=== PATIENT | female | born 1970 | race Caucasian/White ===

== ENCOUNTER 2024-08-12 09:26 | Emergency (ER) | payer OTHER, SELFPAY ==
[2024-08-12 09:35] VITALS: BP 149/82
[2024-08-12 11:01] VITALS: BMI 26.2
--- NOTE | 2024-08-12 11:25 | ED.GENMED ---
History of Present Illness
General
Chief Complaint: Chest Pain
Source: patient
Exam Limitations: none
Time Seen by Provider: 08/12/24 11:05
History of Present Illness
History of Present Illness:
54yoF with a history of psoriasis presenting with her for evaluation of chest pain. Patient reports central to left-sided chest discomfort that has been constant for the past 4 days. The pain is described as a fluttering sensation and is
non-radiating. Pain is worse with deep breathing and position changes. She denies any exertional pain. She initially thought she might have pulled a muscle because she was shoveling snow the day before her symptoms began. She has been taking
acetaminophen without much relief. She reports some tingling in her left hand. She is otherwise asymptomatic and denies any dizziness, syncope, nausea, vomiting, leg swelling, calf pain. She denies any history of coronary artery disease and has
never seen a squeegeer and former before.
Phy Exam
General Physical Exam
General Presentation: well appearing and no apparent distress
General age: appears stated age
General Skin: warm and dry
General Habitus: normal
General Mental: alert
ENT Exam
ENT Exam: normocephalic
Cardiovascular Exam
Cardiovascular Exam: regular rate/rhythm, no edema, no murmur and normal peripheral pulses (2+ DP pulses bilaterally)
Pulmonary Exam
Pulmonary Exam: lungs clear, no respiratory distress, no rales, no crackles, no rhonchi and other (+Point tenderness noted to the L anterior chest wall. No skin changes.)
Neurological Exam
Neurological Exam: alert
Jules Coma Scale
Eye Opening: Spontaneous
Verbal Response: Oriented
Motor Response: Obeys Commands
GCS Total Score: 15
Skin Exam
Skin Exam: normal color and warm/dry
Psychiatric Exam
Psychiatric Exam: normal mood/affect
Scores
Heart Score for Chest Pain Patients
STEMI patient?: No
History: Slightly or Non-Suspicious
ECG: Normal
Age: >45 - <65 years
Risk Factors: No Risk Factors
Troponin: </= Normal Limit
Heart Score for Chest Pain Patients: 1
Heart Score Risk: 2.5% MACE over next 6 weeks
Course
Orders/Labs/Results
Orders:
Orders
08/12/24 09:26
Electrocardiogram (*1) Urgent
Reason for Study: Chest Pain
EKG- Treatment ONCE
08/12/24 11:00
Cardiac Monitoring- Treatment ONCE
IV Insert/Care/Rem.- Treatment PRN
O2 Therapy [RESP] Urgent
Titrate/Wean O2 to maintain O2 sat greater than (%): 90
Special Instructions: Maintain sats >/=90%
Pulse Ox/spot Check [RESP] Urgent
Quantity: 1
Special Instructions: ON ROOM AIR
08/12/24 11:02
Complete Blood Count/With Diff Urgent
Troponin I Urgent
08/12/24 11:04
Chest [CR Chest - 2 Views ] Urgent
Comment:
Reason For Exam: pain/SOB
08/12/24 11:05
D-Dimer Urgent
08/12/24 11:28
Comprehensive Metabolic Panel Routine
08/12/24 12:15
Ketorolac [Toradol] 15 mg IV NOW STA
Abnormal Lab Results
08/12/24 08/12/24
11:02 11:28
MCH 31.9 H pg
(27.0-31.0)
Absolute Monos (auto) 0.8 H 10^3/uL
(0.1-0.6)
Monocytes % 10.3 H %
(1.7-9.3)
BUN 19 H mg/dl
(7-17)
08/12/24 11:02
08/12/24 11:28
Vital Signs
Initial and Last Documented VS:
Initial Vital Signs
Temp Pulse Resp BP Pulse Ox
98.5 F 63 18 149/82 100
08/12/24 09:35 08/12/24 09:35 08/12/24 09:35 08/12/24 09:35 08/12/24 09:35
Last Documented Vital Signs
Temp Pulse Resp BP Pulse Ox
98.5 F 61 17 149/82 100
08/12/24 09:35 08/12/24 11:03 08/12/24 11:08 08/12/24 09:35 08/12/24 09:35
MDM/Problems Addressed
Differential Diagnosis Includes:
54yoF here with chest pain x 4 days. Worse with deep breathing and position changes. Shoveling snow day before pain started. She is mildly hypertensive with otherwise normal vital signs. There is point tenderness to the L anterior chest wall on
exam. Differential diagnosis includes but is not limited to: musculoskeletal, pleurisy, pneumonia, pleural effusion, pneumothorax, PE, ACS
Initial ED plan: Check cardiac labs, D-dimer, EKG, and CXR.
*EKG
Interpreted by ED Provider?: Yes
EKG Intrepretation Date: 08/12/24
Heart Rate: 61
Rate: normal
Rhythm: sinus
[place]: left axis deviation
Interval: normal interval
QRS Pattern: normal QRS
Ischemia: no ischemia
*Critical Care Note
Total Time (30-74mins, 75-104mins- exclusive of procedures): Not Applicable
Update Note
Update Note:
Labs overall unremarkable. D-dimer normal making PE very unlikely. EKG shows normal sinus rhythm without ischemic changes and troponin is within normal limits. Chest x-ray is clear. IV Toradol given with improvement in her pain. No indication
for hospitalization at this time. Suspect musculoskeletal pain. Supportive care discussed. Advised close PCP f/u and ED return precautions discussed. She expressed understanding and is in agreement with plan. She was discharged in stable condition.
ED Attending Note
-
Portions of this chart may have been created with voice recognition software.� Occasional wrong word or��sound alike� substitutions may have occurred due to the inherent limitations of voice recognition software.
Discharge Plan
Departure
Patient Disposition: Home (Routine Discharge)
Date of Disposition: 08/12/24
Time of Disposition: 13:06
Patient with high blood pressure during this ER visit?: Yes
Discharge Problem:
Chest pain
Instructions: Chest Pain PCP Follow Up
Referrals:
Jessica Cowan MD [Family Provider] -
Activity Restrictions/Additional Instructions:
Take ibuprofen 400mg-600mg every 6 hours as needed for pain. Apply heat to affected area.
Please follow-up with your family doctorin 3-4 days. Return to the ER immediately with any new or worsening symptoms.
Interventions
Interventions:
*Risk Screen - Suicide Last Done: 08/12/24 09:35
*General Assessment Last Done: 08/12/24 09:35
*Neglect/Abuse Screening Last Done: 08/12/24 09:35
ED- Fall Risk Assessment Last Done: 08/12/24 11:08
*Nursing Disposition Last Done: 08/12/24 13:25
ED- Cardiac Assessment Last Done: 08/12/24 11:08
Discharge Date and Time
Discharge Date/Time: 08/12/24 13:25
Print Language: WOLOF
[2024-08-12 11:31] LABS: % Basophils 0.6 % (0-2); % Eosinophils 1.4 % (0-6); % Immature Granulocytes 0.3 % (0-0.5); % Lymphocytes 29.8 % (20.5-51.1); % Monocytes 10.3 % (1.7-9.3); % Neutrophils 57.6 % (42.2-75.2); Absolute Basophils 0.1 10^3/uL (0-0.2); Absolute Eosinophils 0.1 10^3/uL (0-0.7); Absolute Lymphocytes 2.3 10^3/uL (1.2-3.4); Absolute Monocytes 0.8 10^3/uL (0.1-0.6); Absolute Neutrophils 4.5 10^3/uL (1.4-6.5); Hematocrit 43.2 % (37.0-47.0); Hemoglobin 14.5 g/dL (12.0-16.0); Mean Corp Hgb Conc. 33.6 g/dL (33.0-37.0); Mean Corpuscular Hgb 31.9 pg (27.0-31.0); Mean Corpuscular Volume 94.9 fL (81.0-99.0); Nucleated Red Blood Cells % 0 %; Red Blood Cell Count 4.55 10^6/uL (4.20-5.40); White Blood Cell Count 7.8 10^3/uL (4.8-10.8)
[2024-08-12 11:31] LABS: D-Dimer < 0.27 ug/mlFEU (0.00-0.50)
[2024-08-12 11:38] LABS: Troponin I < 0.012 ng/ml
[2024-08-12 12:09] LABS: ALT (SGPT) 19 U/L (0-35); AST (SGOT) 23 U/L (14-36); Albumin 4.7 g/dl (3.5-5.0); Alkaline Phosphatase 80 U/L (38-126); Blood Urea Nitrogen 19 mg/dl (7-17); Calcium 9.6 mg/dl (8.4-10.2); Carbon Dioxide 30 mmol/L (22-30); Chloride 102 mmol/L (98-107); Estimated Creatinine Clearance 74 ml/min; Glucose 77 mg/dl (70-99); Potassium 4.2 mmol/L (3.5-5.1); Sodium 141 mmol/L (135-145); Total Bilirubin 0.3 mg/dl (0.2-1.3); Total Protein 7.5 g/dl (6.3-8.2); eGFR > 60.00
[2024-08-12] MEDS: TORADOL 15 MG IV (12:28)
== END 2024-08-12 13:25 | disposition home or self-care (01) ==
LOC: EMR 09:26
PROVIDERS: EMERGENCY PHYSICIAN Emergency Medicine; FAMILY PHYSICIAN Student in an Organized Health Care Education/Training Program
DX: R07.89 Other chest pain (principal); R03.0 Elevated blood-pressure reading, without diagnosis of hypertension
CPT/HCPCS: 99285; 96374; 71046; 80053; 84484; 85025; 85379; 93005